=== PATIENT | male | born 1955 | race Caucasian/White ===

== ENCOUNTER 2016-08-25 09:35 | Emergency (ER) | payer MEDICAID ==
--- NOTE | 2016-08-25 11:35 | MRI REPORT ---
Radiology report MRI lumbar spine without contrast 08/25/2016 CLINICAL HISTORY: Chronic low back pain, pain down left leg PROCEDURE: Sagittal and axial imaging of the lumbar spine was performed. FINDINGS: Comparison is the x-ray from August 04, 2016. To be consistent, the level with the most severe disc space narrowing is labeled L5-S1. This would ma ke S1 somewhat transitional in appearance. There is very minimal posterior subluxation of L5 on S1. No other subluxation. No compression deformi ty. The marrow signal is normal, except for moderate degenerative change around L5-S1. The conus is n ormal, terminating at the L1 level. L1-2 shows no significant canal or foraminal stenosis. L2-3 shows mild canal stenosis due to small broad-based disc, ligamentum and facet hypertrophy. No si gnificant foraminal stenosis. L3-4 shows mild canal stenosis due to broad-based disc, ligamentum and facet hypertrophy. No signific ant foraminal stenosis. L4-5 shows moderate canal stenosis due to broad-based disc, ligamentum and facet hypertrophy. There i s lateralizing disc on the left, with possible focal protrusion, in a position to affect the exiting L4 nerve root. There is significant lateral foraminal stenosis on the left. L5-S1 shows moderate to severe canal stenosis due to broad-based disc, ligamentum and facet hypertrop hy. S1-2 shows no significant stenosis. IMPRESSION: Numbering system is based on transitional S1 vertebral body, and the disc space that is the most narr owed is labeled L5-S1. Moderate canal stenosis at L4-5, with what appears to be a lateralizing disc in the lateral left fora beryl region, in a position to affect the exiting L4 nerve root. Focal nerve root mass (schwannoma or nerve sheath tumor) would also be in the differential. Correlation with clinical symptoms recommende d. Moderate to severe canal stenosis at L5-S1 due to minimal posterior subluxation, disc and osteophyte complex. Report discussed with Dr. Olsen Final Electronic Signature: This report was electronically signed by Chris Chapman MD on 08/25/2016 1 1:33 AM. shanon /
--- NOTE | 2016-08-25 12:20 | ER NURSING DOCUMENTATION ---
Nurse's Notes [facility] Name:Byron Montez Age:61 yrs Sex:Male :1955 Arrival Date:08/25/2016 Time:09:35 Bed6 Private MD:Jessica, Provider Diagnosis:Lumbar Radiculopathy-: L 4 - 5 level Presentation: 08/25 09:42 Presenting complaint: Patient states: Pain in left lower back/buttock, radiates down tg left leg. Started months ago, not getting better. "Debilitating pain." Sent from [facility]. Transition of care: [facility]. Notified ED Physician of patient's arrival and CC Dr. Flaherty notified. 09:42 Method Of Arrival: Private Vehicle tg 09:42 Acuity: KEERTHI 3 tg Triage Assessment: 09:40 General: Appears uncomfortable, Behavior is cooperative. General: Pt reports taking two tg norco and two flexeril since last night.. Pain: Complains of pain in left lower back and left gluteus klaudia Pain radiates to left leg Aggravated by exercise, increased activity, repositioning, weight bearing, Noted to be grimacing. Neuro: Level of Consciousness is awake, alert. Respiratory: Respiratory effort is even, unlabored. Derm: Skin is pink, warm & dry. Musculoskeletal: Range of motion intact in all extremities. Historical: - Allergies: Tetracycline; - Home Meds: 1. hydrocodone 2. meloxicam oral 3. Flexeril Oral - PMHx: chronic back pain; prostatitis; - PSHx: Appendectomy; vasectomy plus 2 reversal attempts; - Tetanus: < 10 years. - Ebola Screening: : Patient negative for fever greater than or equal to 101.5 degrees Fahrenheit, and additional compatible Ebola Virus Disease symptoms. Patient denies exposure to infectious person. Patient denies travel to an Ebola-affected area in the 21 days before illness onset. No symptoms or risks identified at this time. . - Immunization history: Flu Vaccine >1 year. - Social history: Smoking status: Patient states former smoker of tobacco. Patient uses. Screenin:13 Infectious Disease Risk Unable to Obtain. Abuse screen: Denies threats or abuse. Denies tg injuries from another. Nutritional screening: No deficits noted. Assessment: 12:12 Reassessment: Patient states feeling better. tg Vital Signs: 09:46 BP 121 / 67; Pulse 75; Resp 14; Temp 97.4(O); Pulse Ox 95% on R/A; Weight 83.91 kg; tg Height 6 ft. 2 in. (187.96 cm); Pain 10/10; 12:12 BP 111 / 72; Pulse 82; Resp 14; Pulse Ox 94% on R/A; Pain 8/10; tg 09:46 Body Mass Index 23.75 (83.91 kg, 187.96 cm) tg [place] Coma Score: 10:00 Eye Response: spontaneous(4). Verbal Response: oriented(5). Motor Response: obeys cd commands(6). Total: 15. ED Course: 09:37 Patient arrived in ED. ama 09:37 Jessica, Provider is Private Physician. ama 09:42 Amish Hernandez, RN is Primary Nurse. tg 09:44 Triage completed. tg 10:12 Jamar Flaherty MD is Attending Physician. cd 10:24 Patient moved to [facility]. pm1 11:16 Patient moved back from [facility]. pm1 11:56 Jessica, Provider is Referral Physician. cd 12:13 Valuables Remains with patient. tg Administered Medications: No medications were administered Outcome: 11:56 Discharge ordered by MD. cd 12:16 Discharged to home ambulatory, with family. tg 12:16 Condition: unchanged 12:16 Discharge Assessment: Patient drowsy 12:16 Instructed on discharge instructions, follow up and referral plans. medication usage, Prescriptions given X 2, medrol dose pack and norco 12:20 Patient left the ED. tg 08/26 09:22 Discharge F/U Call: Unable to reach: no answer st Signatures: Amish Hernandez, RN RN Anamika Mock RN Jamar Perdue MD MD cd Darcy Dias pm1 Michael Jimenez, Reg Reg ama
--- NOTE | 2016-08-25 12:20 | ER PHYSICIAN DOCUMENTATION ---
Physician Documentation [facility] Name:Byron Montez Age:61 yrs Sex:Male :1955 Arrival Date:08/25/2016 Time:09:35 Bed6 Private MD:Jessica, Provider ED PhysicianJamar Flaherty Disposition: 08/25/16 11:56 Discharged to Home/Self Care. Impression: Lumbar Radiculopathy - : L 4 - 5 level. - Condition is Fair. - Discharge Instructions: LUMBAR RADICULOPATHY - BACK PAIN w/ SCIATICA. - Prescriptions for Hydrocodone- Acetaminophen 5-325 mg Oral Tablet - take 1 tablet by ORAL route every 6 hours As needed; 20 tablet. - Medical Reconciliation form form. - Follow up: Jessica Provider; When: 2 - 3 days; Reason: Recheck today's complaints, Continuance of care. - Problem is an ongoing problem. - Symptoms are unchanged. - Notes: Follow up with Neurosurgeon that Dr. Weaver recommends. Dr. Weaver will contact you regarding which Neurosurgeon you need to see and when. Take the disc with your Lumbar MRI films to the Neurosurgeon. Take Hydrocodone one tab every 4 -6 hours with food as needed for pain. HPI: 08/25 09:40 This 61 yrs old Male presents to ER via Private Vehicle with complaints of cd Back Pain with pain radiating down left leg. 09:40 The patient presents with pain that is chronic, and an injury. The symptoms are located cd in the low back, left low back. Onset: The symptoms/episode began/occurred acutely, 2 month(s) ago. The pain radiates down the patient's left lower extremity. Associated signs and symptoms: Pertinent negatives: abdominal pain, incontinence, numbness, tingling, urinary retention, weakness. The problem was sustained at home, from a chronic condition, during a fall, Patient has been followed by Dr. [facility] at [facility] and was sent to the ED for further evaluation and MRI of the Lumbar Spine. Severity of symptoms: At their worst the symptoms were severe, in the emergency department the symptoms have improved, mildly. Historical: - Allergies: Tetracycline; - Home Meds: 1. hydrocodone 2. meloxicam oral 3. Flexeril Oral - PMHx: chronic back pain; prostatitis; - PSHx: Appendectomy; vasectomy plus 2 reversal attempts; - Tetanus: < 10 years. - Ebola Screening: : Patient negative for fever greater than or equal to 101.5 degrees Fahrenheit, and additional compatible Ebola Virus Disease symptoms. Patient denies exposure to infectious person. Patient denies travel to an Ebola-affected area in the 21 days before illness onset. No symptoms or risks identified at this time. . - Immunization history: Flu Vaccine >1 year. - Social history: Smoking status: Patient states former smoker of tobacco. Patient uses. ROS: 09:50 Constitutional: Positive for poor PO intake, Negative for body aches, chills, fever. cd 09:50 Back: Positive for decreased range of motion, pain at rest, radiated pain, of the left low back. 09:50 : Negative for urinary symptoms, difficulty urinating, bladder incontinence, acute changes. 09:50 Neuro: Negative for numbness, tingling, weakness. 09:50 All other systems are negative. Exam: 10:00 Head/Face: Normocephalic, atraumatic. cd Neck: Trachea midline, no thyromegaly or masses palpated, and no cervical lymphadenopathy. Supple, full range of motion without nuchal rigidity, or vertebral point tenderness. No Meningismus. Cardiovascular: Regular rate and rhythm with a normal S1 and S2. No gallops, murmurs, or rubs. Normal PMI, no JVD. No pulse deficits. Respiratory: Lungs have equal breath sounds bilaterally, clear to auscultation and percussion. No rales, rhonchi or wheezes noted. No increased work of breathing, no retractions or nasal flaring. Abdomen/GI: Soft, non-tender, with normal bowel sounds. No distension or tympany. No guarding or rebound. No evidence of tenderness throughout. Skin: Warm, dry with normal turgor. Normal color with no rashes, no lesions, and no evidence of cellulitis. 10:00 MS/ Extremity: Pulses equal, no cyanosis. Neurovascular intact. Full, normal range cd of motion. 10:00 Constitutional: The patient appears alert, awake, non-diaphoretic, well developed, well nourished, anxious, in obvious distress, moderately distressed. 10:00 Back: pain, that is moderate, of the left low back, ROM is painful, with all movement, normal spinal alignment noted, CVA tenderness, is absent, vertebral tenderness, is not appreciated, Straight leg raises: of both lower extremities does not illicit pain. 10:00 Neuro: Motor: moves all fours, Sensation: is normal, Gait: is steady, Deep tendon reflexes are normal. Vital Signs: 09:46 BP 121 / 67; Pulse 75; Resp 14; Temp 97.4(O); Pulse Ox 95% on R/A; Weight 83.91 kg; tg Height 6 ft. 2 in. (187.96 cm); Pain 10/10; 12:12 BP 111 / 72; Pulse 82; Resp 14; Pulse Ox 94% on R/A; Pain 8/10; tg 09:46 Body Mass Index 23.75 (83.91 kg, 187.96 cm) tg [place] Coma Score: 10:00 Eye Response: spontaneous(4). Verbal Response: oriented(5). Motor Response: obeys cd commands(6). Total: 15. MDM: 09:42 Data interpreted: Pulse oximetry: on room air is 94 %. Interpretation: normal. cd 09:50 Differential diagnosis: chronic back pain, Fracture ruptured disc, Lumbar cd Radiculopathy. Data reviewed: vital signs, nurses notes, old medical records, and as a result, I will continue to observe the patient, order radiologic studie(s), MRI. 10:12 Patient medically screened. cd 11:45 Counseling: I had a detailed discussion with the patient and/or guardian regarding: the cd historical points, exam findings, and any diagnostic results supporting the discharge/admit diagnosis, radiology results, the need for outpatient follow up, for a recheck, for a referral to a specialist, a neurosurgeon, to return to the emergency department if symptoms worsen or persist or if there are any questions or concerns that arise at home. 11:55 Physician consultation: Dr. Owen GARCIA was called at 11:50, was contacted at 11:52, regarding consult, patient's condition, outpatient follow-up, with Neurosurgeon. Dr. Weaver asked the patient be placed on Hydrocodone for pain and a Medrol Dose Pack to decrease his inflammation, which I did. Dr. Weaver stated he would arrange Neurosurgical follow up and call the patient with the Neurosurgeon's name, location and time of the appointment. 08/25 11:38 Order name: LUMBAR SPINE W/O [id number]; Complete Time: 06:59 EDMS 08/26 06:59 Interpretation: Abnormal: See Report per Radiologist. cd Dispensed Medications: No medications were administered Signatures: Amish Hernandez, RN RN tg Jamar Flaherty MD MD cd
== END 2016-08-25 12:20 | disposition home or self-care (01) ==
LOC: ER 09:35
DX: M54.16 Radiculopathy, lumbar region (principal); M54.5 Low back pain; Z79.899 Other long term (current) drug therapy
CPT/HCPCS: 72148; 99284